=== PATIENT | male | born 1975 | race Caucasian/White ===

== ENCOUNTER 2016-09-17 01:37 | Emergency (ER) | payer OTHER ==
[2016-09-17] MEDS ORDERED: Ondansetron INJ* 2 MG/ML VIAL IV ONE (02:14)
[2016-09-17] MEDS ORDERED: Morphine INJ* 4 MG/ML 1 ML SYRINGE IV ONE (02:14)
[2016-09-17] MEDS ORDERED: NS 0.9% 1000 ML* 1,000 ML IV ONE (02:14)
[2016-09-17 03:09] LABS: Hematocrit 46 % (42-52); Hemoglobin 15.2 g/dl (14.0-18.0); Mean Corpuscular HGB Conc 33 g/dl (31-36); Mean Corpuscular Hemoglobin 28 pg (27-31); Mean Corpuscular Volume 84 fL (80-94); Mean Platelet Volume 8 um3 (7.4-10.4); Red Blood Count 5.49 10^6/ul (4.0-5.4); Red Cell Distribution Width 13 % (10.5-15); White Blood Count 14.8 10^3/ul (3.5-10.8)
[2016-09-17 03:25] LABS: Albumin 4.3 g/dL (3.2-5.2); BUN/Creatinine Ratio 21.4 (8-20); Calcium 9.7 mg/dL (8.6-10.3); EGFR African American 108.4 (>60); EGFR Non-African American 84.3 (>60); Globulin 3.4 g/dL (2-4); Potassium 3.6 mmol/L (3.5-5.0); Total Bilirubin 0.4 mg/dL (0.2-1.0); Total Protein 7.7 g/dL (6.4-8.9)
[2016-09-17] MEDS ORDERED: NS 0.9% 1000 ML* 2,000 ML IV ONE (03:36)
[2016-09-17 03:37] LABS: Urine Bacteria Absent (Absent); Urine Bilirubin Negative (Negative); Urine Glucose Negative (Negative); Urine Nitrite Negative (Negative)
[2016-09-17] MEDS ORDERED: Iohexol 300* (CONTRAST) 10 ML SDV IV ONE (03:46)
[2016-09-17] MEDS ORDERED: Metoclopramide IV* 5 MG/ML 2 ML VIAL ONE (03:54)
[2016-09-17] MEDS ORDERED: Metoclopramide IV* 5 MG/ML 2 ML VIAL IV ONE (03:54)
[2016-09-17] MEDS ORDERED: Tamsulosin CAP* 0.4 MG PO ONE (05:23)
[2016-09-17 05:24] VITALS: BP 132/92
--- NOTE | 2016-09-17 08:38 | RAD ---
CLINICAL HISTORY: Left lower quadrant pain COMPARISON: None TECHNIQUE: Contrast enhanced CT examination of the abdomen and pelvis from the lung bases through the initial tuberosities. The patient received 117 mL Omnipaque 300 intravenously prior to imaging.The patient received oral contrast as well prior to imaging. FINDINGS: VISUALIZED LUNG BASES: The visualized lung bases are grossly clear. There is no pleural effusion. ABDOMEN AND PELVIS: The liver, spleen, pancreas and adrenal glands are grossly normal in appearance. The gallbladder is normal. The right kidney is normal in appearance without focal mass, calcification or signs of hydronephrosis. There is mild hydronephrosis of the left kidney. At the proximal right ureter (axial image 87 and coronal image 53) there is a 4 mm calcification. No more calcifications are visualized in the more distal ureter or in the urinary bladder. On the delayed phase images there is delayed excretion of contrast in the mildly dilated left renal pelvis. The oral contrast has progressed as only as far as the proximal small bowel. The small and large bowel are not distended. The patient's normal appendix is identified in the right lower quadrant (axial image 112). There is no gross retroperitoneal or mesenteric lymphadenopathy. Coarse calcification is incidentally noted in the prostate gland. The abdominal aorta and iliac arteries are normal in course and diameter. Incidentally noted is what appears to be an accessory vascular structure (image 110 of 201) contiguous with the left renal lower pole. This either represents an accessory renal vein or an accessory renal artery branching from either the left common iliac artery or a lumbar artery. Degenerative changes include multilevel loss of intervertebral disc height involving the lower thoracic and lumbar spine.There are no sinister bone lesions. IMPRESSION: 1. There is a 4 mm calcification in the proximal left ureter with a mild degree of ipsilateral hydronephrosis and evidence of relative delayed excretion on the delayed phase images. 2. Additional chronic and degenerative changes as described in the body of the report.
--- NOTE | 2016-09-17 21:22 | ED ---
Sean Griffin Alok, scribed for Lalito Pro on 09/17/16 at 0252 . Abdominal Pain/Male - HPI Summary HPI Summary: 41 y/o male presents to the ED for LLQ abd pain since 2400. Pt states his pain has been constant and continually worsening. Pt adds nausea. Pt denies diarrhea or hemotochezia. Pt notes achiness but is unsure of fever. Pt denies past abd surgery. Pt is allergic to amoxicillin. - History of Current Complaint Chief Complaint: EDAbdPain Stated Complaint: LEFT FLANK PAIN Time Seen by Provider: 09/17/16 02:06 Hx Obtained From: Patient Onset/Duration: Gradual Onset, Still Present, Worse Since - continually worsening Timing: Constant Severity Initially: Moderate Severity Currently: Moderate Pain Intensity: 7 Pain Scale Used: 0-10 Numeric Location: Discrete At: LLQ Associated Signs And Symptoms: Positive: Nausea, Other - achiness. Negative: Blood in Stool, Diarrhea - Allergies/Home Medications Allergies/Adverse Reactions: Allergies Allergy/AdvReac Type Severity Reaction Status Date / Time Amoxicillin Allergy Rash Verified 09/17/16 01:43 PMH/Surg Hx/FS Hx/Imm Hx Infectious Disease History: No Infectious Disease History: Denies: Traveled Outside the [place] in Last 30 Days - Family History Known Family History: Negative: Hypertension - Social History Occupation: Employed Full-time Lives: With Family Alcohol Use: Occasionally Substance Use Type: Reports: None Smoking Status (MU): Never Smoked Tobacco Review of Systems Negative: Fever Positive: Abdominal Pain, Nausea. Negative: Diarrhea, Other - hematochezia All Other Systems Reviewed And Are Negative: Yes Physical Exam Triage Information Reviewed: Yes Vital Signs On Initial Exam: Initial Vitals Temp Pulse Resp BP Pulse Ox 96.8 F 53 18 121/73 100 09/17/16 01:43 09/17/16 01:43 09/17/16 01:43 09/17/16 01:43 09/17/16 01:43 Vital Signs Reviewed: Yes Appearance: Positive: Well-Appearing, No Pain Distress Skin: Positive: Warm, Skin Color Reflects Adequate Perfusion, Dry Head/Face: Positive: Normal Head/Face Inspection Eyes: Positive: EOMI, FANTA ENT: Positive: Normal ENT inspection Neck: Positive: Supple, Nontender Respiratory/Lung Sounds: Positive: Clear to Auscultation, Breath Sounds Present Cardiovascular: Positive: RRR, Pulses are Symmetrical in both Upper and Lower Extremities Abdomen Description: Positive: Soft, Other: - LLQ tenderness Bowel Sounds: Positive: Present Musculoskeletal: Positive: Normal, Strength/ROM Intact Neurological: Positive: Normal, Sensory/Motor Intact, Alert, Oriented to Person Place, Time - [place] Coma Scale Coma Scale Total: 15 Diagnostics - Vital Signs Vital Signs Temp Pulse Resp BP Pulse Ox 09/17/16 01:43 96.8 F 53 18 121/73 100 - Laboratory Result Diagrams: 09/17/16 02:45 09/17/16 02:45 Lab Statement: Any lab studies that have been ordered have been reviewed, and results considered in the medical decision making process. - CT Abd/Pel CT CT Interpretation: Positive (See Comments) - IMPRESSION: OBSTRUCTING CALCULUS IN THE PROXIMAL LEFT URETER. CT Interpretation Completed By: Radiologist Re-Evaluation - Re-Evaluation First Eval Re-Evaluation Time: 05:30 Change: Improved Comment: Pt feel better after morphine. Pt has no pain. Abdominal Pain Fem Course/Dx - Course Course Of Treatment: Pt arrived with left flank pain. Lab and CT shows renal calculi. Pt given morphine and feels better with no pain. Will discharge with pain meds and flomax and to FU with Urology. - Diagnoses Provider Diagnoses: Renal calculi Discharge - Discharge Plan Condition: Stable Disposition: HOME Prescriptions: Tamsulosin HCl [Flomax] 0.4 mg PO ONCE #15 cap MDD 1 oxyCODONE/Acetamin 5/325 MG* [Percocet 5/325 TAB*] 1 tab PO Q8H PRN #20 tab MDD 4 PRN Reason: Pain Referrals: Matt Johansen MD [Primary Care Provider] - Additional Instructions: Please follow up with Urology [phone] The documentation as recorded by the Sean luna Alok accurately reflects the service I personally performed and the decisions made by , Lalito Pro.
== END 2016-09-17 05:44 | disposition home or self-care (01) ==
LOC: ED 01:37
DX: N13.2 Hydronephrosis with renal and ureteral calculous obstruction (principal); R11.0 Nausea; Z88.1 Allergy status to other antibiotic agents
CPT/HCPCS: 36415; 74177; 80053; 81003; 81015; 83605; 83690; 85025; 85610; 85730; 96361; 96374; 96375; 99283; J2270; J2405; Q9967

== ENCOUNTER 2017-08-06 08:36 | Emergency (ER) | payer OTHER ==
[2017-08-06] MEDS ORDERED: Acetaminophen TAB* 325 MG PO ONE (09:50)
[2017-08-06] MEDS ORDERED: NS 0.9% 1000 ML* 1,000 ML IV ONE (09:51)
[2017-08-06] MEDS ORDERED: Clindamycin 600 MG IVPREMIX(* 600 MG/50 ML SDV IV ONE (09:55)
--- NOTE | 2017-08-06 09:55 | ED ---
Tesfaye Griffin Julia, scribed for Yasmin Pollack MD on 08/06/17 at 0949 . HPI Febrile Illness - HPI Summary HPI Summary: This patient is a 41 year old M presenting to [facility] with a chief complaint of fever, measured over 100F, beginning last night into this morning. This morning fever was "high" and the thermometer would not read it. Patient states he had a shaving infection to his right neck on 08/02/17 that was drained while in [place] on 08/04/17. Pt flew home from [place] last night. Patient reports nausea and decreased appetite. Patient denies vomiting. Patient states pain is not too bad. Patient has had five doses of Cipro. Pt took one dose of Tylenol and two of Advil prior to arrival. Patient denies health issues that may make him immune compromised, including DM, cancer, and MRSA. Pt is is otherwise healthy. 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 Pt states wound size markedly improved Pt's medications reviewed this visit - History of Current Complaint Chief Complaint: EDFever Time Seen by Provider: 08/06/17 09:29 Hx Obtained From: Patient, Family/Cannon Pinion Adjuster Onset/Duration: Started Days Ago, Worse Since - last night Timing: Constant Temperature: 100 F Initial Severity: Mild Current Severity: Moderate Pain Intensity: 2 Pain Scale Used: 0-10 Numeric Aggravating Factors: Other: - infection Associated Signs and Symptoms: Nausea - and decreased appetite - Allergy/Home Medications Allergies/Adverse Reactions: Allergies Allergy/AdvReac Type Severity Reaction Status Date / Time amoxicillin Allergy Rash Verified 08/06/17 08:41 PMH/Surg Hx/FS Hx/Imm Hx Previously Healthy: Yes Endocrine/Hematology History: Denies: Hx Diabetes Cardiovascular History: Denies: Hx Hypertension History: Denies: Hx Renal Disease - Cancer History Hx Chemotherapy: No Hx Radiation Therapy: No - Surgical History Surgery Procedure, Year, and Place: denies Infectious Disease History: No Infectious Disease History: Reports: Traveled Outside the [place] in Last 30 Days - [facility] Denies: Hx of Known/Suspected MRSA - Family History Known Family History: Positive: Diabetes - father Negative: Hypertension - Social History Occupation: Employed Full-time Lives: With Family Alcohol Use: Occasionally Substance Use Type: Reports: None Smoking Status (MU): Never Smoked Tobacco Review of Systems Positive: Fever Positive: Nausea - and decreased appetite. Negative: Vomiting Positive: Other - skin infection to right neck All Other Systems Reviewed And Are Negative: Yes Physical Exam Triage Information Reviewed: Yes Vital Signs On Initial Exam: Initial Vitals Temp Pulse Resp BP Pulse Ox 100.5 F 109 16 150/85 94 08/06/17 08:42 08/06/17 08:42 08/06/17 08:42 08/06/17 08:42 08/06/17 08:42 Vital Signs Reviewed: Yes Appearance: Positive: Well-Appearing, No Pain Distress - tired appearing, Well- Nourished Skin: Positive: Warm, Skin Color Reflects Adequate Perfusion, Dry, Other - Pt with focal area of erythema, edema and drainage from wound just superior to left mandible- c/w abscess no odor Eyes: Positive: Normal, EOMI, FANTA ENT: Positive: Normal ENT inspection, Hearing grossly normal, Pharynx normal, TMs normal, Other - facial abscess - no intra-oral edema no pain or limitatin at TMJ or along jawline Neck: Positive: Supple, Nontender, No Lymphadenopathy Respiratory/Lung Sounds: Positive: Clear to Auscultation, Breath Sounds Present , Decreased Breath Sounds Cardiovascular: Positive: Normal - borderline tachy, RRR, Pulses are Symmetrical in both Upper and Lower Extremities, Bradycardia. Negative: Murmur Abdomen Description: Positive: Nontender, No Organomegaly, Soft Bowel Sounds: Positive: Present Musculoskeletal: Positive: Normal, Strength/ROM Intact Neurological: Positive: Normal, Sensory/Motor Intact, Alert, Oriented to Person Place, Time Psychiatric: Positive: Normal AVPU Assessment: Alert - [place] Coma Scale Best Eye Response: 4 - Spontaneous Best Motor Response: 6 - Obeys Commands Best Verbal Response: 5 - Oriented Coma Scale Total: 15 Procedures - Procedure Summary Procedure Summary: + verbal consent - d/w with pt cosmetic concerns related to abscess on face - pt and state understanding and desire to proceed time out complete Under sterile conditions, infiltrated 2% lidocaine without epi to wound removed scab from previious I+d site Did NOT extend incision. Used mosquito to open small loculation irrigated with 250 ml and removed copious, purulent discharge no packing place culture taken Pt tolerated well - Incision and Drainage Site: left distal cheek - just above mandible Anesthesia: Local Instrument(s): Other - forcep, mosquito Packing: Gauze Diagnostics - Vital Signs Vital Signs Temp Pulse Resp BP Pulse Ox 08/06/17 08:42 100.5 F 109 16 150/85 94 - Laboratory Result Diagrams: 08/06/17 09:50 08/06/17 11:30 Lab Statement: Any lab studies that have been ordered have been reviewed, and results considered in the medical decision making process. Re-Evaluation - Re-Evaluation 1 Re-Evaluation Time: 11:38 Comment: Lab results will be repeated because of low sodium - Pt given 1 liter NS. Will check - ifimproved, will d/c with pcp vs surgery f/u. d/w pt and at length regarding wound care. abx. antipyretic. hydrate. return precautions Second Eval Change: Improved - Pt reports feeling better Pt sodium improved 126 Surgery PA in dept - eval pt - will see in f.u on Wednesday - will make appt Will recheck sodium encouraged gatorade, not water return precautions pro-biotics pt comfortable and in agreement with plan Course/Dx - Course Assessment/Plan: Pt with persistent left facial abscess - s/p I+D 2 days ago. Pt continues with edema and drainage, but improved from prior to drainage. Pt is on Cipro - 5 doses. not immunocompromised. No concern for tracking of abscess based on exam at this time. Will further I+D wound. IVF. change to Clinda - d/w pt regarding diarrhea and risks for c diff - pt will take pro- biotics. Will give additional APAP. Pt comfortable and in agreement with plan - Diagnoses Provider Diagnoses: Facial abscess, Hyponatremia Discharge - Sign-Out/Discharge Documenting (check all that apply): Discharge - Discharge Plan Condition: Stable Disposition: HOME Prescriptions: Clindamycin HCl 300 mg PO TID #30 capsule Patient Education Materials: Hyponatremia (ED), Abscess (ED) Referrals: Matt Johansen MD [Primary Care Provider] - Charles Zhao MD [Medical Doctor] - (11:45am on Wednesday08/09/2017) Additional Instructions: - Stop taking Cipro, start taking Clindamycin as prescribed - This may cause diarrhea - it is recommended you take pro-biotic daily while taking this antibiotic. You may also consider eating yogurt daily while on this medication - alternate ibuprofen (advil, Motrin) and tylenol every 3 hours for pain or fever - Stay hydrated - drink plenty of non-alcoholic, non-caffinated beverages - Change bandage 2 times a day - you wound should be rechecked in 2-3 days. You may follow-up with the community health specialist as scheduled today. Alternatively, you may follow-up with your primary doctor or return here. You have an appointment with the surgical associates at 11:45am on Wednesday08/09/2017 - It is recommended you do not drink straight water - it is recommended you drink gatorade or other electrolyte rich beverages If continue with uncontrolled fevers, develop vomiting or any other concerns you should return to the emergency department - Billing Disposition and Condition Condition: STABLE Disposition: HOME The documentation as recorded by the Tesfaye luna Julia accurately reflects the service I personally performed and the decisions made by me, Yasmin Pollack MD.
[2017-08-06] MEDS ORDERED: Lidocaine 2% PF * 5 ML VIAL IV ONE (10:01)
[2017-08-06 10:17] LABS: Hematocrit 39 % (42-52); Hemoglobin 13.4 g/dl (14.0-18.0); Mean Corpuscular HGB Conc 34 g/dl (31-36); Mean Corpuscular Hemoglobin 28 pg (27-31); Mean Corpuscular Volume 83 fL (80-94); Mean Platelet Volume 7.1 um3 (7.4-10.4); Platelet Count 233 10^3/ul (150-450); Red Blood Count 4.72 10^6/ul (4.0-5.4); Red Cell Distribution Width 13 % (10.5-15); White Blood Count 18.8 10^3/ul (3.5-10.8)
[2017-08-06 10:39] LABS: EGFR Non-African American 102.1 (>60)
[2017-08-06 11:10] LABS: ABS Basophils 0 10^3/ul (0-0.2); ABS Eosinophils 0 10^3/ul (0-0.6); ABS Monocytes 1.6 10^3/ul (0-0.8); ABS Neutrophils 16.2 10^3/ul (1.5-7.7); ABS Nucleated RBC 0 10^3/ul; Eosinophil % 0 % (0-6); Lymphocyte % 5.1 % (25-47); Nucleated Red Blood Cells % 0
[2017-08-06] MEDS ORDERED: NS 0.9% 1000 ML* 2,000 ML IV ONE (11:41)
[2017-08-06 12:47] LABS: EGFR Non-African American 114.8 (>60)
[2017-08-06 13:27] VITALS: BP 146/80
--- NOTE | 2017-08-07 10:09 | ED ---
Progress - Progress Note Progress Note: Patient's wound culture reveals MRSA and staph aureus. Additionally he had aerobic and anaerobic blood cultures which also reveal MRSA and staph aureus. Patient had a fever and was tachycardic with an elevated white blood cell count upon evaluation yesterday. He had been taking cipro for a few days prior to coming in for eval and it appears wound was not improving despite this medication adn attempts at drainage as well. Wound was I&D'd yesterday w/o packing. Spoke with him today and he reports he feels a little better but is still queasy, weak and not feeling great in general. Advised to return to the emergency department to be admitted for IV antibiotics. Patient agrees with plan and states he will come in today. Alerted front office coordinator staff including registration and triage nurse. Re-Evaluation - Re-Evaluation Second Eval Change: Improved - Pt reports feeling better Pt sodium improved 126 Surgery PA in dept - eval pt - will see in f.u on Wednesday - will make appt Will recheck sodium encouraged gatorade, not water return precautions pro-biotics pt comfortable and in agreement with plan 1 Re-Evaluation Time: 11:38 Comment: Lab results will be repeated because of low sodium - Pt given 1 liter NS. Will check - ifimproved, will d/c with pcp vs surgery f/u. d/w pt and at length regarding wound care. abx. antipyretic. hydrate. return precautions Course/Dx - Diagnoses Provider Diagnoses: Facial abscess, Hyponatremia Discharge - Sign-Out/Discharge Documenting (check all that apply): Post-Discharge Follow Up - Discharge Plan Condition: Stable Disposition: HOME Prescriptions: Clindamycin HCl 300 mg PO TID #30 capsule Patient Education Materials: Hyponatremia (ED), Abscess (ED) Referrals: Matt Johansen MD [Primary Care Provider] - Charles Zhao MD [Medical Doctor] - (11:45am on Wednesday08/09/2017) Additional Instructions: - Stop taking Cipro, start taking Clindamycin as prescribed - This may cause diarrhea - it is recommended you take pro-biotic daily while taking this antibiotic. You may also consider eating yogurt daily while on this medication - alternate ibuprofen (advil, Motrin) and tylenol every 3 hours for pain or fever - Stay hydrated - drink plenty of non-alcoholic, non-caffinated beverages - Change bandage 2 times a day - you wound should be rechecked in 2-3 days. You may follow-up with the oral surgery assistant as scheduled today. Alternatively, you may follow-up with your primary doctor or return here. You have an appointment with the surgical associates at 11:45am on Wednesday08/09/2017 - It is recommended you do not drink straight water - it is recommended you drink gatorade or other electrolyte rich beverages If continue with uncontrolled fevers, develop vomiting or any other concerns you should return to the emergency department - Billing Disposition and Condition Condition: STABLE Disposition: HOME
--- NOTE | 2017-08-08 09:21 | PN ---
Progress Note - Progress Note Date of Service: 08/06/17 Note: Patient is currently admitted for MRSA-positive staph aureus positive cultures He is receiving the appropriate treatment via IV antibiotics
--- NOTE | 2017-08-09 08:52 | ED ---
Progress - Progress Note Progress Note: Patient's wound culture reveals MRSA and staph aureus. Additionally he had aerobic and anaerobic blood cultures which also reveal MRSA and staph aureus. Patient had a fever and was tachycardic with an elevated white blood cell count upon evaluation yesterday. He had been taking cipro for a few days prior to coming in for eval and it appears wound was not improving despite this medication adn attempts at drainage as well. Wound was I&D'd yesterday w/o packing. Spoke with him today and he reports he feels a little better but is still queasy, weak and not feeling great in general. Advised to return to the emergency department to be admitted for IV antibiotics. Patient agrees with plan and states he will come in today. Alerted front office agent staff including registration and triage nurse. UPDATE: Pt returned to ED on 08/07/2017 and has been admitted for MRSA/staph bacteremia. He has been on IV vancomycin since return to ED on 08/07/2017. Ada Wilkins hospitalist QUALITY ASSURANCE SUPERVISOR aware. Re-Evaluation - Re-Evaluation Second Eval Change: Improved - Pt reports feeling better Pt sodium improved 126 Surgery PA in dept - eval pt - will see in f.u on Wednesday - will make appt Will recheck sodium encouraged gatorade, not water return precautions pro-biotics pt comfortable and in agreement with plan 1 Re-Evaluation Time: 11:38 Comment: Lab results will be repeated because of low sodium - Pt given 1 liter NS. Will check - ifimproved, will d/c with pcp vs surgery f/u. d/w pt and at length regarding wound care. abx. antipyretic. hydrate. return precautions Course/Dx - Diagnoses Provider Diagnoses: Facial abscess, Hyponatremia Discharge - Sign-Out/Discharge Documenting (check all that apply): Post-Discharge Follow Up - Discharge Plan Condition: Stable Disposition: HOME Prescriptions: Clindamycin HCl 300 mg PO TID #30 capsule Patient Education Materials: Hyponatremia (ED), Abscess (ED) Referrals: Matt Johansen MD [Primary Care Provider] - Charles Zhao MD [Medical Doctor] - (11:45am on Wednesday08/09/2017) Additional Instructions: - Stop taking Cipro, start taking Clindamycin as prescribed - This may cause diarrhea - it is recommended you take pro-biotic daily while taking this antibiotic. You may also consider eating yogurt daily while on this medication - alternate ibuprofen (advil, Motrin) and tylenol every 3 hours for pain or fever - Stay hydrated - drink plenty of non-alcoholic, non-caffinated beverages - Change bandage 2 times a day - you wound should be rechecked in 2-3 days. You may follow-up with the health science specialist as scheduled today. Alternatively, you may follow-up with your primary doctor or return here. You have an appointment with the surgical associates at 11:45am on Wednesday08/09/2017 - It is recommended you do not drink straight water - it is recommended you drink gatorade or other electrolyte rich beverages If continue with uncontrolled fevers, develop vomiting or any other concerns you should return to the emergency department - Billing Disposition and Condition Condition: STABLE Disposition: HOME
== END 2017-08-06 13:26 | disposition home or self-care (01) ==
LOC: ED 08:36
DX: L02.01 Cutaneous abscess of face (principal); B95.62 Methicillin resistant Staphylococcus aureus infection as the cause of diseases classified elsewhere; Z16.11 Resistance to penicillins; Z16.29 Resistance to other single specified antibiotic; E87.1 Hypo-osmolality and hyponatremia; R50.9 Fever, unspecified; R11.0 Nausea; Z88.1 Allergy status to other antibiotic agents
CPT/HCPCS: 10060; 36415; 80048; 85025; 87040; 87070; 87077; 87150; 87186; 87205; 87640; 87641; 99282; A9270-GY

== ENCOUNTER 2017-08-07 10:38 | Inpatient (IN) | payer OTHER ==
[2017-08-07] MEDS ORDERED: Vancomycin(*) 1,000 MG VIAL IVPB SCH (11:00)
--- NOTE | 2017-08-07 11:08 | ED ---
Sepsis HPI - HPI Summary HPI Summary: Pt here w/ + wound cx and blood cx's for MRSA and staph aureus. He reports this initially started as an infected ingrown hair on the left side of his neck while he was traveling to [place] on Wednesday. It seemed to get worse while he was there so he went to see a physician who he reports drained the abscess and placed him on ciprofloxacin. He took this up until yesterday when he return to the emergency department here and saw Dr. Pollack. His wound was re-drained and note indicates purulent drainage was expressed. He was switched from Cipro to clindamycin which she's been taking. He's also been taking ibuprofen and acetaminophen to reduce his fever which has been well-controlled since. He does report however he still not feeling well in general - run down, short of breath with exertion, no appetite but has been consuming fluids. He also admits to mild headache. Chest pain w/ cough only (cough is dry and infrequent) . Mild TUCKER. No difficulty breathing or swallowing. - History of Current Complaint Chief Complaint: EDRashSkinAbscess Time Seen by Provider: 08/07/17 10:40 Stated Complaint: NEEDS IV ANTIBIOTICS Hx Obtained From: Patient Pain Intensity: 0 - Allergy/Home Medications Allergies/Adverse Reactions: Allergies Allergy/AdvReac Type Severity Reaction Status Date / Time amoxicillin Allergy Rash Verified 08/06/17 08:41 PMH/Surg Hx/FS Hx/Imm Hx Previously Healthy: No - recalcitrant left neck wound Endocrine/Hematology History: Denies: Hx Diabetes Cardiovascular History: Denies: Hx Hypertension History: Denies: Hx Renal Disease - Cancer History Hx Chemotherapy: No Hx Radiation Therapy: No - Surgical History Surgery Procedure, Year, and Place: denies Infectious Disease History: Yes Infectious Disease History: Reports: Hx of Known/Suspected MRSA, Traveled Outside the [place] in Last 30 Days - [place] - Family History Known Family History: Positive: Diabetes - father Negative: Hypertension - Social History Occupation: Employed Full-time Lives: With Family Alcohol Use: Occasionally Hx Substance Use: No Substance Use Type: Reports: None Hx Tobacco Use: No Smoking Status (MU): Never Smoked Tobacco Review of Systems Positive: Chills, Fatigue Eyes: Negative ENT: Negative Positive: Chest Pain - w/ cough only Positive: Shortness Of Breath - w/ exertion only . Negative: Cough Gastrointestinal: Other - dec appetite Negative: Abdominal Pain, Vomiting, Diarrhea, Nausea Positive: no symptoms reported Musculoskeletal: Negative Skin: Other - Left neck with MRSA/staph aureus wound Positive: Headache - mild All Other Systems Reviewed And Are Negative: Yes Physical Exam Triage Information Reviewed: Yes Vital Signs On Initial Exam: Initial Vitals Pulse Ox 94 08/07/17 10:40 Vital Signs Reviewed: Yes Appearance: Positive: No Pain Distress, Well-Nourished, Ill-Appearing - appears fatigued Skin: Positive: Warm, Skin Color Reflects Adequate Perfusion, Other - Lt side of neck: wound dressing clean and dry - removed and quarter sized area of swelling w/ central opening and purulent drainage observed - expressed blood streaked purulent drainage - pt tolerated well, redressed with gauze/tegaderm Head/Face: Positive: Normal Head/Face Inspection Eyes: Positive: Normal, EOMI, Conjunctiva Clear. Negative: Conjunctiva Inflammed, Discharge ENT: Positive: Normal ENT inspection, Hearing grossly normal, Pharynx normal - oral mucosa somewhat dry, pallor Respiratory/Lung Sounds: Positive: Clear to Auscultation, Breath Sounds Present. Negative: Rales, Rhonchi, Stridor, Tracheal Deviation, Wheezes, Unable to speak in full sentences Cardiovascular: Positive: Normal, RRR, S1, S2. Negative: Murmur, Rub Abdomen Description: Positive: Nontender, No Organomegaly, Soft Bowel Sounds: Positive: Present Musculoskeletal: Positive: Normal, Strength/ROM Intact Neurological: Positive: Normal, Sensory/Motor Intact, Alert, Oriented to Person Place, Time, CN Intact II-III Psychiatric: Positive: Normal Diagnostics - Vital Signs Vital Signs Temp Pulse Resp BP Pulse Ox 08/07/17 10:41 98.4 F 93 16 127/81 94 08/07/17 10:40 94 - Laboratory Result Diagrams: 08/07/17 11:23 08/07/17 11:23 Lab Statement: Any lab studies that have been ordered have been reviewed, and results considered in the medical decision making process. Course/Dx - Course Course Of Treatment: Pt returned to ED per request - blood cx's + MRSA and staph aureus. He has a wound on Lt side of neck with is positive for the same. Was taking cipro s/p I&D while in [place] earlier this week - no improvement so came here yesterday. Wound was further opened and drainaged - switched to clindamycin (received 1 dose IV here and has been taking PO at home). Still feels weak and with reduced appetite in general. Spesis protocol initiated upon arrival. Will be admitted for IV anbx (started on vancomycin in ED). Upon review of labs, WBC has improved however he continues to have elevated neutrophils. CRP is in 300's. Appears mildly dehydrated - normal Lactic acid. CXR w/o acute pulm findings. Afebrile and vitals stable however has been alternating ibuprofen/acetaminophen around the clock. Stable at time of transition of care. - Differential Dx/Clinical Impression Provider Diagnosis: MRSA bacteremia, Staphylococcus aureus bacteremia, Open neck wound Discharge - Sign-Out/Discharge Documenting (check all that apply): Discharge - Discharge Plan Condition: Stable Disposition: ADMITTED TO [facility] - Billing Disposition and Condition Condition: STABLE Disposition: [facility] [place]
[2017-08-07] MEDS ORDERED: Vancomycin(*) 1,250 MG in NS 0.9% 250 ML* 250 ML IVPB ONE (11:09)
[2017-08-07] MEDS ORDERED: NS 0.9% 1000 ML* 1,000 ML IV ONE (11:09)
[2017-08-07] MEDS ORDERED: NS 0.9% 1000 ML*IV.FLUID IV ONE (11:12)
[2017-08-07] MEDS ORDERED: NS 0.9% 250 ML* 250 ML ONE (11:14)
[2017-08-07 11:32] LABS: ABS Basophils 0 10^3/ul (0-0.2); ABS Eosinophils 0 10^3/ul (0-0.6); ABS Lymphocytes 0.2 10^3/ul (1.0-4.8); ABS Monocytes 0.5 10^3/ul (0-0.8); ABS Nucleated RBC 0 10^3/ul; Eosinophil % 0.2 % (0-6); Hematocrit 40 % (42-52); Hemoglobin 13.9 g/dl (14.0-18.0); Lymphocyte % 2.8 % (25-47); Mean Corpuscular HGB Conc 34 g/dl (31-36); Mean Corpuscular Hemoglobin 29 pg (27-31); Mean Corpuscular Volume 83 fL (80-94); Nucleated Red Blood Cells % 0; Platelet Count 181 10^3/ul (150-450); Red Blood Count 4.87 10^6/ul (4.0-5.4); Red Cell Distribution Width 13 % (10.5-15); White Blood Count 8.8 10^3/ul (3.5-10.8)
[2017-08-07 11:49] LABS: EGFR Non-African American 106.5 (>60)
[2017-08-07 11:51] LABS: INR 1.38 (0.77-1.02)
[2017-08-07] MEDS ORDERED: Vancomycin(*) 1,250 MG IV x ONCE IVPB ONE ×2 (12:00)
--- NOTE | 2017-08-07 12:02 | RAD ---
HISTORY: Sepsis COMPARISONS: None VIEWS: 1: frontal portable view of the chest at 11:33 AM FINDINGS: LINES AND TUBES: None. CARDIOMEDIASTINAL SILHOUETTE: The cardiomediastinal silhouette is normal for portable technique. PLEURA: The costophrenic angles are sharp. No pleural abnormalities are noted. LUNG PARENCHYMA: The lungs are clear. ABDOMEN: The upper abdomen is clear. There is no subphrenic gas. BONES AND SOFT TISSUES: No bone or soft tissue abnormalities are noted. IMPRESSION: NO ACTIVE CARDIOPULMONARY DISEASE.
[2017-08-07] MEDS ORDERED: Ondansetron INJ* 2 MG/ML VIAL IV PRN (12:08)
[2017-08-07] MEDS ORDERED: NS 0.9% 1000 ML* 1,000 ML IV SCH (12:15)
[2017-08-07] MEDS ORDERED: Vancomycin per Pharmacy* NOTE FOLLOW UP SCH (13:00)
[2017-08-07] MEDS: Heparin VIAL(*) 5000 UNITS/ML VIAL (FIVE THOUSAND) SUBCUT SCH ×2 (13:32→20:14)
[2017-08-07] MEDS: Acetaminophen TAB* 325 MG PO PRN ×2 (14:11→20:19)
[2017-08-07] MEDS ORDERED: Ibuprofen TAB* 600 MG PO PRN (14:46)
--- NOTE | 2017-08-07 18:28 | HP ---
CC: Dr. Johansen.* HOSPITAL MEDICINE HISTORY AND PHYSICAL: DATE OF ADMISSION: 08/07/17. PRIMARY CARE PHYSICIAN: Dr. Johansen. ATTENDING PHYSICIAN: Dr. Michaela Andrea * (dictation provided by Ada Wilkins NP ). CHIEF COMPLAINT: Fever and left neck abscess. HISTORY OF PRESENT ILLNESS: Mr. Victor is a 41-year-old male with no significant past medical history who presents to the hospital today in concern for fever, left neck abscesses and positive blood cultures. Mr. Victor states that he first noticed an infection after shaving to his left mid neck on 08/02/17. At that point, he was in [place]. He followed up with a doctor there on 08/04/17 and the abscess was lanced, with significant purulent drainage. The patient was started on ciprofloxacin which he continued for and 08/05/17. On 08/05/17, he flew back to [place]. On 08/06/17, he had fever, was feeling generalized malaise and therefore came to the emergency room at [facility] for evaluation. At that point, the area was again I and D'd. He had a white blood cell count of 18.8. He was hyponatremic with a sodium of 125. His BUN and creatinine were normal. His potassium was 3.3. His lactic acid was 2.2. His fever was about 100.5. The patient after the I and D was discharged home on clindamycin. Blood cultures were obtained at that time, and patient was called today with notification that the blood cultures are positive for MRSA. Mr. Victor states that he has had symptoms of high fever with generalized malaise. He has a very mild nausea but no vomiting. He denies headache. He denies any significant pain associated with an abscess and certainly no difficulty with breathing or swallowing. Today in the emergency room, his labs showed that his white blood cell count is resolved, it is now 8.8. His sodium is now 130. CRP was 318.14. He is afebrile but he has taken Tylenol and acetaminophen at home. He is not tachycardic. His blood pressure is 110/75. His lactic acid is normal at 0.8. PAST MEDICAL HISTORY: None. MEDICATIONS: Clindamycin as prescribed in the ER on 08/06/17 only. ALLERGIES: To AMOXICILLIN. FAMILY HISTORY: The patient reports that his father is alive and has diabetes. His mother is from gallbladder cancer. SOCIAL HISTORY: The patient denies tobacco or drug use. He drinks alcohol only very occasionally. 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 He is and has 2 children. He states his is his healthcare proxy. REVIEW OF SYSTEMS: A 14-point review of systems was completed with Mr. Victor and all those not mentioned above were negative. PHYSICAL EXAMINATION GENERAL: Mr. Victor is sitting in the bed. He is in no acute distress. VITAL SIGNS: Temperature 98.4, heart rate 90, respiratory rate 18, O2 saturation 94% on room air, blood pressure 110/75. HEENT: Extraocular movements are intact. LUNGS: Clear to auscultation bilaterally with no accessory muscle use and good aeration. HEART: S1, S2. No murmur, rub, or gallop and regular. ABDOMEN: Soft and nontender with bowel sounds positive x4. EXTREMITIES: No cyanosis or edema. NEURO: He is alert. He is oriented x3. He moves all extremities equally. There is no facial asymmetry. No focal weakness. SKIN: The patient has an indurated pus filled abscess on the left side of his neck, this pus was expressed by the ED physician enrichment assistant with good success and clearing of that, he has a very small opening there less than half a centimeter in diameter. LABORATORY DATA/DIAGNOSTIC STUDIES: Sodium 130, potassium 3.6, chloride 99, serum bicarbonate 25, BUN 13, creatinine 0.80. Lactic acid 0.8. Total bilirubin 2.0. CRP is 318.14. INR is 1.38. WBC 8.8, hemoglobin 13.9, hematocrit 40, platelet count 181. Blood cultures from yesterday as well as wound culture is positive for MRSA. The patient has a chest x-ray which showed no active pulmonary disease. ASSESSMENT AND PLAN: Mr. Victor is a 41-year-old male with no significant past medical history who originally developed an abscess on his left neck on , which was opened and drained on 08/04/17, at which time ciprofloxacin was started. By 08/06/17 he was feeling febrile and was seen in our emergency room for additional drainage and switched to clindamycin. Blood cultures drawn at that time now positive for methicillin-resistant Staphylococcus aureus. Plan for admission to the hospital for the followin. Methicillin-resistant Staphylococcus aureus bacteremia: At this time the patient does not meet criteria for sepsis. The patient's leukocytosis is normalized. His vital signs are stable. His lactic acid is normal. Repeat blood cultures have been drawn. I am going to order a second set of blood cultures to be drawn tomorrow after 24 hours on vancomycin. The patient will have a transthoracic echocardiogram tomorrow as a transesophageal is not available for an initial assessment for vegetation, but he will then go on for a transesophageal echocardiogram on Wednesday. The patient will be seen in consultation by Dr. Jayden Castaneda from Infectious Diseases, until then the patient will continue on vancomycin intravenously, dosing per pharmacy . The patient will have Tylenol for fever. He will continue on maintenance IV fluids for his hyponatremia and suspected mild dehydration in the setting of fevers. The patient has no history of prosthetic joint or other apparatus. 2. DVT prophylaxis with heparin subcu. 3. Code status is full code. TIME SPENT: Approximately 60 minutes was spent on admission of this patient; more than half time spent with the patient at the bedside reviewing the events leading up to this hospitalization, performing the physical examination and reviewing my plan of care. ADA WILKINS NP [id number]/[facility] #: [id number] JAZMIN
[2017-08-07 18:30] LABS: Urine Appearance Cloudy; Urine Blood 2+ (Negative); Urine Color Amber; Urine Ketones Negative (Negative); Urine Protein 1+(30 mg/dL) (Negative); Urine Specific Gravity 1.011 (1.010-1.030); Urine Urobilinogen Positive (Negative)
[2017-08-07] MEDS: Vancomycin(*) 1,000 MG in NS 0.9% 250 ML* 250 ML IVPB SCH (20:14)
[2017-08-08] MEDS: Acetaminophen TAB* 325 MG PO PRN ×3 (02:17→16:54)
[2017-08-08] MEDS: Vancomycin(*) 1,000 MG in NS 0.9% 250 ML* 250 ML IVPB SCH ×3 (04:01→17:49)
[2017-08-08] MEDS: Heparin VIAL(*) 5000 UNITS/ML VIAL (FIVE THOUSAND) SUBCUT SCH ×3 (04:07→21:59)
[2017-08-08 06:20] LABS: ABS Basophils 0 10^3/ul (0-0.2); ABS Eosinophils 0 10^3/ul (0-0.6); ABS Monocytes 0.6 10^3/ul (0-0.8); ABS Neutrophils 5.1 10^3/ul (1.5-7.7); ABS Nucleated RBC 0 10^3/ul; Eosinophil % 0.3 % (0-6); Hematocrit 38 % (42-52); Hemoglobin 13.1 g/dl (14.0-18.0); Lymphocyte % 14.4 % (25-47); Mean Corpuscular HGB Conc 35 g/dl (31-36); Mean Corpuscular Hemoglobin 29 pg (27-31); Mean Corpuscular Volume 83 fL (80-94); Mean Platelet Volume 7.5 um3 (7.4-10.4); Nucleated Red Blood Cells % 0.1; Platelet Count 192 10^3/ul (150-450); Red Blood Count 4.61 10^6/ul (4.0-5.4); Red Cell Distribution Width 13 % (10.5-15); White Blood Count 6.7 10^3/ul (3.5-10.8)
[2017-08-08] MEDS: Lactobacillus Acidophilu (GG)* 1 CAP CAP PO SCH (09:09)
--- NOTE | 2017-08-08 10:08 | PN ---
Subjective Date of Service: 08/08/17 Interval History: . Interviewed and examined patient at bedside; Discussed case with DENA Wilkins; Reviewed previous notes and radiology results; No new symptoms reported Family History: Unchanged from Admission Social History: Unchanged from Admission Past Medical History: Unchanged from Admission Objective Active Medications: . Acetaminophen (Tylenol Tab*) 650 mg PO Q6H PRN PRN Reason: pain/fever Last Admin: 08/08/17 09:09 Dose: 650 mg Heparin Sodium (Porcine) (Heparin Vial(*)) 5,000 units SUBCUT Q8HR [facility] Last Admin: 08/08/17 04:07 Dose: Not Given Vancomycin HCl 1,000 mg/ (Sodium Chloride) 250 mls @ 166.667 mls/hr IVPB Q8H [facility] Last Admin: 08/08/17 04:01 Dose: 166.667 mls/hr Ibuprofen (Motrin Tab*) 600 mg PO Q8H PRN PRN Reason: PAIN Lactobacillus Rhamnosus (Culturelle*) 1 cap PO DAILY [facility] Last Admin: 08/08/17 09:09 Dose: 1 cap Ondansetron HCl (Zofran Inj*) 4 mg IV Q6H PRN PRN Reason: NAUSEA Pharmacy Consult (Vancomycin Per Pharmacy*) 1 note FOLLOW UP .VANC PER PHARMACY [facility] Pharmacy Profile Note (Vancomycin Trough Check) 1 note FOLLOW UP 1200 ONE Stop: 08/08/17 12:01 . Vital Signs - 8 hr 08/08/17 08/08/17 03:36 07:32 Temperature 100.8 F 100.8 F Pulse Rate 95 86 Respiratory 16 22 Rate Blood Pressure 130/78 150/77 (mmHg) O2 Sat by Pulse 94 96 Oximetry Oxygen Devices in Use Now: None Appearance: NAD Eyes: No Scleral Icterus Ears/Nose/Mouth/Throat: Clear Oropharnyx Neck: Trachea Midline, - - abscess, s/p I&D - dressed Respiratory: Symmetrical Chest Expansion and Respiratory Effort Cardiovascular: NL Sounds; No Murmurs; No JVD Abdominal: NL Sounds; No Tenderness; No Distention Lymphatic: No Cervical Adenopathy Extremities: No Edema Skin: No Rash or Ulcers Neurological: Alert and Oriented x 3 Lines/Tubes/Other Access: Clean, Dry and Intact Peripheral IV Nutrition: Taking PO's Result Diagrams: 08/08/17 05:51 08/08/17 05:51 Assess/Plan/Problems-Billing .Assessment: 41 yo man with no sig pmh now with MRSA abscess on L aspect of neck --> IV antibiotics ongoing NIGEL pending 08/09/17 . - Patient Problems (1) Abscess of neck Current Visit: Yes Status: Acute Priority: High Code(s): L02.11 - CUTANEOUS ABSCESS OF NECK Comment: - s/p I&D - On vancomycin - NIGEL pending; NO p mn. (2) MRSA (methicillin resistant staph aureus) culture positive Current Visit: Yes Status: Acute Priority: High Code(s): Z22.322 - CARRIER OR SUSPECTED CARRIER OF METHICILLIN RESIS STAPH Comment: - NIGEL pending .
[2017-08-08] MEDS ORDERED: Vancomycin Trough Check NOTE FOLLOW UP ONE (12:00)
[2017-08-08] MEDS ORDERED: Potassium Chlor TAB* 10 MEQ TAB.ER PO ONE (17:54)
[2017-08-08] MEDS ORDERED: NS 0.9% 1000 ML* 1,000 ML IV ONE (18:51)
[2017-08-09] MEDS: Vancomycin(*) 1,000 MG in NS 0.9% 250 ML* 250 ML IVPB SCH ×5 (00:21→23:58)
[2017-08-09] MEDS: Heparin VIAL(*) 5000 UNITS/ML VIAL (FIVE THOUSAND) SUBCUT SCH ×3 (06:30→21:54)
[2017-08-09 06:41] LABS: ABS Basophils 0 10^3/ul (0-0.2); ABS Eosinophils 0 10^3/ul (0-0.6); ABS Monocytes 1.2 10^3/ul (0-0.8); ABS Neutrophils 5.9 10^3/ul (1.5-7.7); ABS Nucleated RBC 0 10^3/ul; Eosinophil % 0.1 % (0-6); Hematocrit 37 % (42-52); Hemoglobin 12.8 g/dl (14.0-18.0); Lymphocyte % 22.1 % (25-47); Mean Corpuscular HGB Conc 35 g/dl (31-36); Mean Corpuscular Hemoglobin 29 pg (27-31); Mean Corpuscular Volume 83 fL (80-94); Mean Platelet Volume 7.2 um3 (7.4-10.4); Nucleated Red Blood Cells % 0; Platelet Count 226 10^3/ul (150-450); Red Blood Count 4.46 10^6/ul (4.0-5.4); Red Cell Distribution Width 14 % (10.5-15); White Blood Count 9.2 10^3/ul (3.5-10.8)
[2017-08-09] MEDS: NS 0.9% 1000 ML* 1,000 ML IV SCH (10:10)
[2017-08-09] MEDS ORDERED: Vancomycin Trough Check NOTE FOLLOW UP ONE (11:30)
[2017-08-09 11:52] LABS: Vancomycin Trough 15.3 mcg/mL
[2017-08-09 11:53] LABS: EGFR Non-African American 122.3 (>60)
--- NOTE | 2017-08-09 12:01 | CONS ---
CONSULTATION REPORT: DATE OF CONSULT: 08/09/17 REQUESTING PHYSICIAN: Dr. Lawson. CONSULTING SERVICE: Infectious Disease. REASON FOR CONSULT: MRSA bacteremia. IMPRESSION: 1. Methicillin-resistant staphylococcus aureus bacteremia documented since the and still positive as of the . He has a left facial abscess/ingrown hair, which has had bedside debridement twice in the last week. It is also growing methicillin-resistant staphylococcus aureus. 2. Because of persistent methicillin-resistant staphylococcus aureus bacteremia , differential diagnosis includes intravascular infection including infective endocarditis. He has no spine pain or joint pain to suggest other site of musculoskeletal infection. He has no prosthetic material present. 3. AMOXICILLIN allergy caused rash. RECOMMENDATION: Recheck blood cultures today. Agree with a transesophageal echocardiogram that is pending. Once the blood cultures are negative, he will need a PICC line and 2 weeks of IV antibiotics assuming the echocardiogram is negative. HISTORY OF PRESENT ILLNESS: This is a 41-year-old man who was recently traveling in [facility], developed a left face abscess about a week and a half ago , thinks it may have been an ingrown hair initially, may have nicked it while shaving, had an incision and debridement done as an outpatient in [facility], was given ciprofloxacin which he had taken since he last flew back to [place], end of last week. We will see in the ER with fever, sweats, malaise, diffuse myalgia, reaccumulation of the facial abscess. It was drained in the ER. Blood cultures were obtained. He was sent home on clindamycin. The blood cultures came back positive for MRSA in 4/4 bottles. He was asked to come back into the hospital on the , started on vancomycin, admitted to the hospital. Chest x-ray showed no acute process. He has not had a fever since yesterday morning. Blood cultures taken yesterday are still positive, 4/4 bottles. He has no prosthetic material present. He has no focal pain including the spine or joints. He does still have diffuse myalgia. He has no cough or shortness of breath. PAST MEDICAL HISTORY: None. ALLERGIES: AMOXICILLIN caused a rash. FAMILY HISTORY: Father is alive with diabetes. Mother from gallbladder cancer. SOCIAL HISTORY: Denies tobacco or injection drugs. Occasional alcohol use. 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 No sick contacts. REVIEW OF SYSTEMS: A 14-point review of systems was all negative except as noted above. PHYSICAL EXAM: Vital Signs: Temperature is 37.7, heart rate 80, respiratory rate 16, blood pressure 130/83, oxygen saturation 96% on room air. In general, he is awake, not in distress. Neurologic: He is oriented x3. Follows all commands. Moves all extremities. HEENT: There is no conjunctival hemorrhage. Oropharynx without lesions. Neck is supple without mass. Lymph Nodes: There is no cervical, supraclavicular, inguinal, axillary, or epitrochlear lymphadenopathy. Heart is regular rate and rhythm without murmurs, rubs, or gallops. Lungs are clear to auscultation bilaterally. Abdomen: Soft, nontender, nondistended. There are bowel sounds present. Skin: There is no rash or splinter hemorrhages. Musculo-skeletal: There is no spine tenderness to palpation or joint synovitis. At the angle of the mandible on the left, there is a 1 cm area of induration and erythema without fluctuance. There is no expressible fluid. LABORATORY DATA: White blood cell count 9, hemoglobin 12, platelets 226,000. Creatinine 0.7. CRP was 320 on admission. Please see impressions and recommendations outlined above, which I have discussed with Dr. Lawson. Thank you for asking me to see Mr. Victor in consultation. [id number]/[facility] #: [id number] JAZMIN
[2017-08-09] MEDS ORDERED: Lidocaine 2% VISCOUS* 15 ML UDC ONE (14:04)
[2017-08-09] MEDS ORDERED: Midazolam* 1 MG/ML 10 ML VIAL (10 MG) ONE (14:04)
[2017-08-09] MEDS ORDERED: fentaNYL* 50 MCG/ML 2 ML VIAL (100 MCG VIAL) ONE (14:04)
[2017-08-09] MEDS ORDERED: diPHENhydraMINE IV* 50 MG/ML 1 ml VIAL (BENADRYL) ONE (14:38)
[2017-08-09] MEDS: Lactobacillus Acidophilu (GG)* 1 CAP CAP PO SCH (16:02)
--- NOTE | 2017-08-09 16:09 | TEE ---
Patient: MONIKA GRANADOS [facility] Rec#: [id number] : 1975 Date: 08/09/2017 Age: 41y Height: 170 cm / 66.9 in Weight: 82 kg / 180.7 lbs Sex: M BSA: 1.9 Room#: 408 Admit Date#: 08/07/2017 Type: Inpatient Referring: Ada Wilkins NP Performing: Robel Mcmahan DO Reading: Robel Mcmahan DO Glass Tinter: Radha Tolliver RN RDCS Nurse: Tej Mack RN CC: Matt Johansen MD Transesophageal Echocardiogram Indication: MRSA bacteremia BP: 133/76 HR: 87 Rhythm: NSR with PACs Findings History: Fever, neck abscess, previously healthy Technical Comments: The study quality is good. Left Ventricle: The left ventricular chamber size is normal. Global left ventricular wall motion and contractility are within normal limits. There is normal left ventricular systolic function. The estimated ejection fraction is 55-60%. Left Atrium: The left atrial chamber size is normal. There is no thrombus visualized in the left atrial appendage. Right Ventricle: The right ventricular chamber size and systolic function are within normal limits. Right Atrium: The right atrial cavity size is normal. The bubble study is negative. A patent foramen ovale is not demonstrated with color Doppler and agitated contrast. Aortic Valve: The aortic valve is trileaflet. There is no evidence of aortic regurgitation. There is no evidence of aortic stenosis. There is no aortic vegetation present. Mitral Valve: The mitral valve leaflets appear normal. There is trace to mild mitral regurgitation. There is no evidence of mitral stenosis. No vegetation is observed on the mitral valve. Tricuspid Valve: The tricuspid valve leaflets are normal. A prominent papillary muscle is seen. There is trace tricuspid regurgitation. There is no tricuspid stenosis. No vegetation is observed on the tricuspid valve. Pulmonic Valve: The pulmonic valve appears normal. There is no evidence of pulmonic regurgitation. There is no pulmonic stenosis. No vegetation is observed on the pulmonic valve. Pericardium: There is no significant pericardial effusion. Aorta: There is no dilatation of the ascending aorta. There is mild dilatation of the aortic root. Pulmonary Artery: The main pulmonary artery is not well visualized. Venous: The bicaval view was obtained and appears normal. The pulmonary veins appear normal.2 of 4 pulmonary veins are well visualized and interrogated with Doppler. NIGEL Procedures: All standard views were attempted within the limitations of patient tolerance and safety. History and physical as well as labs were reviewed. The patient was in a fasting state. Risks and benefits of the procedure, including alternatives, were discussed and written informed consent was obtained. The patient and/or their health care retail representative expressed understanding of the procedure, risks and benefits. Baseline and continuous monitoring of blood pressure, heart rate, pulse oximetry and heart rhythm was performed throughout the procedure. The appropriate time-out procedure was performed as per [facility] protocol. The patient was placed in the left lateral decubitus position. The patient's posterior pharynx was anesthetized with 20ml of 2% viscous lidocaine. The patient received IV Midazolam with a total dose of 9 mg. The patient received IV Fentanyl with a total dose of 100 mcg. The patient also received IV Benadryl with a total dose of 50 mg. An oral bite block was inserted for protection of oral dentition. The multiplane transesophageal echocardiogram probe was inserted through the posterior oropharynx and advanced into the esophagus without difficulty. Multiple 2D images were obtained of the heart and its related structures. Color flow Doppler was used for evaluation. Spectral Doppler was also used. The atrial septum was interrogated with color flow Doppler. At the conclusion of the procedure the probe was removed with continuous suction without complications. The patient tolerated the procedure with no apparent complications. Contrast: Normal saline was used as contrast for the bubble study. Image 66. Conclusions There is normal left ventricular systolic function. The estimated ejection fraction is 55-60%. The left atrial chamber size is normal. The right ventricular chamber size and systolic function are within normal limits. There is no significant pericardial effusion. No significant valvular abnormalities noted. No echo evidence of endocarditis. A prominent tricuspid valve papillary muscle is seen. There is mild dilatation of the aortic root. None prior for comparison Measurements Name Value Normal Range Aortic Annulus 2.3 cm (1.4 - 2.6) Ao root diameter (2D) 3.7 cm (2.1 - 3.5) Ascending Ao 3.4 cm (2.1 - 3.4)
--- NOTE | 2017-08-09 19:35 | PN ---
Subjective Date of Service: 08/09/17 Interval History: . s/p NIGEL --> no vegetation seen Continuing IV antibiotics fr several days given recent + BCX. Recheck BCX tomorrow. Family History: Unchanged from Admission Social History: Unchanged from Admission Past Medical History: Unchanged from Admission Objective Active Medications: . Acetaminophen (Tylenol Tab*) 650 mg PO Q6H PRN PRN Reason: pain/fever Last Admin: 08/08/17 16:54 Dose: 650 mg Heparin Sodium (Porcine) (Heparin Vial(*)) 5,000 units SUBCUT Q8HR [facility] Last Admin: 08/09/17 15:00 Dose: Not Given Vancomycin HCl 1,000 mg/ (Sodium Chloride) 250 mls @ 166.667 mls/hr IVPB Q6H [facility] Last Admin: 08/09/17 17:18 Dose: 166.667 mls/hr Sodium Chloride (Ns 0.9% 1000 Ml*) 1,000 mls @ 75 mls/hr IV PER RATE [facility] Last Admin: 08/09/17 10:10 Dose: 75 mls/hr Ibuprofen (Motrin Tab*) 600 mg PO Q8H PRN PRN Reason: PAIN Lactobacillus Rhamnosus (Culturelle*) 1 cap PO DAILY [facility] Last Admin: 08/09/17 16:02 Dose: 1 cap Ondansetron HCl (Zofran Inj*) 4 mg IV Q6H PRN PRN Reason: NAUSEA Pharmacy Consult (Vancomycin Per Pharmacy*) 1 note FOLLOW UP .VANC PER PHARMACY [facility] . Vital Signs - 8 hr 08/09/17 08/09/17 08/09/17 11:39 15:40 15:45 Temperature 98.7 F 99.1 F 99.1 F Pulse Rate 78 82 82 Respiratory 18 18 18 Rate Blood Pressure 147/86 143/93 143/93 (mmHg) O2 Sat by Pulse 95 94 94 Oximetry Oxygen Devices in Use Now: None Appearance: NAD Eyes: No Scleral Icterus Ears/Nose/Mouth/Throat: NL Teeth, Lips, Gums, - - small lesion on left submandibular area - dry, no fluctuance at this time. Respiratory: Symmetrical Chest Expansion and Respiratory Effort Cardiovascular: NL Sounds; No Murmurs; No JVD Abdominal: NL Sounds; No Tenderness; No Distention Lymphatic: No Cervical Adenopathy Extremities: No Edema Skin: No Rash or Ulcers Neurological: Alert and Oriented x 3 Lines/Tubes/Other Access: Clean, Dry and Intact Peripheral IV Nutrition: Taking PO's Result Diagrams: 08/09/17 06:22 08/09/17 11:01 Microbiology and Other Data: Microbiology 08/08/17 11:20 Aerobic Blood Culture - Preliminary Blood Venous MRSA Anaerobic Blood Culture - Preliminary MRSA Blood MRSA/MSSA (PCR) - Final Mrsa Positive S.aureus Positive 08/08/17 05:51 Aerobic Blood Culture - Preliminary Blood Venous MRSA Anaerobic Blood Culture - Preliminary MRSA Blood MRSA/MSSA (PCR) - Final Mrsa Positive S.aureus Positive 08/07/17 17:45 Urine Culture - Final Urine No Growth (<1,000 CFU/mL) Assess/Plan/Problems-Billing .Assessment: 41 yo man with no sig pmh now with MRSA abscess on L aspect of neck --> IV antibiotics ongoing NIGEL 08/09/17 showed no vegetation on valves . - Patient Problems (1) Abscess of neck Current Visit: Yes Status: Acute Priority: High Code(s): L02.11 - CUTANEOUS ABSCESS OF NECK Comment: - s/p I&D - On vancomycin; appreciate ID consultation. - NIGEL neg (2) MRSA (methicillin resistant staph aureus) culture positive Current Visit: Yes Status: Acute Priority: High Code(s): Z22.322 - CARRIER OR SUSPECTED CARRIER OF METHICILLIN RESIS STAPH Comment: - NIGEL neg on (no evidence for endocarditis)
[2017-08-09] MEDS ORDERED: Potassium Chlor TAB* 20 MEQ TAB.ER PO ONE (19:36)
[2017-08-10] MEDS: NS 0.9% 1000 ML* 1,000 ML IV SCH (04:53)
[2017-08-10] MEDS: Vancomycin(*) 1,000 MG in NS 0.9% 250 ML* 250 ML IVPB SCH ×5 (05:46→21:59)
[2017-08-10] MEDS: Heparin VIAL(*) 5000 UNITS/ML VIAL (FIVE THOUSAND) SUBCUT SCH ×3 (05:46→21:59)
[2017-08-10 06:42] LABS: Hematocrit 37 % (42-52); Hemoglobin 12.6 g/dl (14.0-18.0); Mean Corpuscular HGB Conc 34 g/dl (31-36); Mean Corpuscular Hemoglobin 29 pg (27-31); Mean Corpuscular Volume 83 fL (80-94); Mean Platelet Volume 7.1 um3 (7.4-10.4); Platelet Count 245 10^3/ul (150-450); Red Blood Count 4.43 10^6/ul (4.0-5.4); Red Cell Distribution Width 14 % (10.5-15); White Blood Count 11.5 10^3/ul (3.5-10.8)
[2017-08-10 06:45] LABS: ABS Basophils 0.1 10^3/ul (0-0.2); ABS Eosinophils 0.1 10^3/ul (0-0.6); ABS Lymphocytes 2.8 10^3/ul (1.0-4.8); ABS Monocytes 1.9 10^3/ul (0-0.8); ABS Neutrophils 6.6 10^3/ul (1.5-7.7); ABS Nucleated RBC 0 10^3/ul; Eosinophil % 0.8 % (0-6); Lymphocyte % 24.2 % (25-47); Nucleated Red Blood Cells % 0
[2017-08-10] MEDS: Acetaminophen TAB* 325 MG PO PRN (09:23)
[2017-08-10] MEDS: Lactobacillus Acidophilu (GG)* 1 CAP CAP PO SCH (09:23)
--- NOTE | 2017-08-10 10:24 | RAD ---
INDICATION: Abnormal liver function studies. Bacteremia. Request for duplex interrogation of the inferior vena cava, portal, hepatic veins. COMPARISON: None TECHNIQUE: Duplex interrogation of the hepatic and portal venous system was performed. There are Limited grayscale images as well. FINDINGS: The IVC is patent with a normal waveform. The portal vein and portal venous branches appear patent. The main portal vein measures 1.1 cm and demonstrates normal hepatopedal flow with velocity of approximately 30 cm/s. The hepatic veins are patent with normal hepatofugal flow. Limited grayscale imaging shows a mild enlarged (19.2 cm) liver with a nonshadowing echogenic focus in the anterior right hepatic lobe measuring 0.6 mm. This likely a hemangioma. Limited views the pancreas and right kidney unremarkable. The gallbladder appears normal. There is no dilatation of the common duct which is measured 0.3 cm. Limited imaging of the hepatic artery shows patency with a focal area of increased velocity of 305 cm/s. The significance is uncertain. There is a right-sided effusion. IMPRESSION: 1. The hepatic and portal veins are patent with normal direction of flow. 2. Mild hepatomegaly with suspected hemangioma. 3. Normal gallbladder. 4. Elevated hepatic arterial velocities of unknown significance. 5. Right-sided effusion.
[2017-08-10] MEDS ORDERED: Iohexol 300* (CONTRAST) 10 ML SDV IV ONE (14:39)
--- NOTE | 2017-08-10 14:55 | PN ---
Progress Note - Progress Note Date of Service: 08/10/17 SOAP: Subjective: CC: bacteremia HPI: 41 year old man with fever and malaise after I&D left face abscess in [place]; found to have MRSA in blood and in the abscess when repeat I&D in ER here. Today more energy, fever less intense. Mild RUQ pain with deep breath, no rash, or diarrhea. Objective: Vital Signs Temp 37.0 C 08/10/17 12:29 Pulse 72 08/10/17 12:07 Resp 21 08/10/17 12:07 BP 141/83 08/10/17 12:07 Pulse Ox 94 08/10/17 12:07 Intake & Output 08/09/17 08/10/17 08/10/17 18:59 06:59 18:59 Intake Total 970 2292 0 Balance 970 2292 0 Weight 190 lb Intake: IV Fluids 400 602 NS (0.9%) 400 602 IVPB 570 250 ABX - VANCOMYCIN 570 250 Oral 0 1440 0 Other: Estimated Void Large # Bowel Movements 0 0 # Voids 1 Gen:awake, no distress HEENT:no thrush: inferior to left mandible is 1 cm erythema with induration and small eschar Neck:supple Heart:RRR no murmur Lungs:CTA BL Abd:+BS soft, RUQ tenderness w deep breath Skin: no rash MSK: No spine tenderness or joint synovitis Laboratory Results - last 24 hr 08/10/17 08/10/17 06:30 06:30 WBC 11.5 H RBC 4.43 Hgb 12.6 L Hct 37 L MCV 83 MCH 29 MCHC 34 RDW 14 Plt Count 245 MPV 7.1 L Neut % (Auto) 57.6 Lymph % (Auto) 24.2 L [place] % (Auto) 16.9 H Eos % (Auto) 0.8 Baso % (Auto) 0.5 Absolute Neuts (auto) 6.6 Absolute Lymphs (auto) 2.8 Absolute Monos (auto) 1.9 H Absolute Eos (auto) 0.1 Absolute Basos (auto) 0.1 Absolute Nucleated RBC 0 Nucleated RBC % 0 Sodium 132 L Potassium 3.3 L Chloride 100 L Carbon Dioxide 25 Anion Gap 7 BUN 7 Creatinine 0.76 Est GFR ( Amer) 145.4 Est GFR (Non-Af Amer) 113.0 BUN/Creatinine Ratio 9.2 Glucose 117 H Calcium 8.1 L Magnesium 1.9 Total Bilirubin 3.20 H AST 137 H ALT 170 H Alkaline Phosphatase 135 H Total Protein 5.7 L Albumin 2.7 L Globulin 3.0 Albumin/Globulin Ratio 0.9 L Microbiology 08/09/17 11:01 Aerobic Blood Culture - Preliminary Blood Venous Anaerobic Blood Culture - Preliminary No Growth Day 1 08/08/17 11:20 Aerobic Blood Culture - Final Blood Venous MRSA Anaerobic Blood Culture - Final MRSA Blood MRSA/MSSA (PCR) - Final Mrsa Positive S.aureus Positive 08/08/17 05:51 Aerobic Blood Culture - Final Blood Venous MRSA Anaerobic Blood Culture - Final MRSA Blood MRSA/MSSA (PCR) - Final Mrsa Positive S.aureus Positive Assessment: 1. MRSA bacteremia, persists; NIGEL no vegetation. Diff dx includes liver abscess ; no spine or joint symptoms. No prosthetic material present. 2. transaminitis ?liver abscess vs medication related 3. amox allergy Plan: 1. CT A/P 2. continue vancomycin goal tr 15-20, recheck BC 08/11 (ordered). PICC ok when BC negative. GPC in 1/2 from [address]. Discussed with Dr Lawson
--- NOTE | 2017-08-10 21:18 | RAD ---
CLINICAL HISTORY: MRSA bacteremia COMPARISON: None TECHNIQUE: Contrast enhanced CT examination of the abdomen and pelvis from the lung bases through the initial tuberosities. The patient received 115 mL Omnipaque 300 intravenously prior to imaging.The patient received oral contrast as well prior to imaging. FINDINGS: Unless otherwise specified comparisons below reference the September 17, 2016 CT. VISUALIZED LUNG BASES: There are small bilateral pleural effusions slightly larger on the right and left. These are new since the previous CT examination. ABDOMEN AND PELVIS: The liver, spleen, pancreas and adrenal glands are grossly normal in appearance. The gallbladder is normal. At the upper pole the left kidney there is a 9 mm focal hypoattenuating lesion similar in appearance to the previous CT examination. More inferiorly there is vague hypoattenuation in the anterior lateral portion of the left kidney. Left kidney has a partially extrarenal pelvis similar to the previous CT examination. The oral contrast has progressed as far as the descending colon. The small and large bowel are not distended. The patient's normal appendix is identified in the right lower quadrant measuring 5 mm in diameter (axial image 60 and coronal image 42).. There is no gross retroperitoneal or mesenteric lymphadenopathy. The pelvic viscera is normal in appearance. There is a small focus of free fluid in the pelvis. The abdominal aorta and iliac arteries are normal in course and diameter. Degenerative changes include multilevel loss of intervertebral disc height involving the lower thoracic and lumbar spine.There are no sinister bone lesions. IMPRESSION: 1. Involving the upper pole of the left kidney there is vague cortical hypoattenuation that was not seen on the previous CT examination. Please correlate to signs or symptoms of pyelonephritis. Further characterization of the kidneys could be made with renal ultrasound. 2. Interval appearance of small bibasilar pleural effusions (slightly larger on the right than the left, as well as a small collection or free fluid in the left of midline dependent pelvis.
--- NOTE | 2017-08-10 21:33 | PN ---
Subjective Date of Service: 08/10/17 Interval History: . Patient in NAD; visiting + fevers, but lower than previously. Persistently + Bcx... s/p U/S RUQ as well as CT Abd/pelvis w/ contrast. - neither fully explain the bacteremia. Called patient's friend (a physician) to give clinical update. fluids ongoing as per patient request. Family History: Unchanged from Admission Social History: Unchanged from Admission Past Medical History: Unchanged from Admission Objective Active Medications: . Acetaminophen (Tylenol Tab*) 650 mg PO Q6H PRN PRN Reason: pain/fever Last Admin: 08/10/17 09:23 Dose: 650 mg Heparin Sodium (Porcine) (Heparin Vial(*)) 5,000 units SUBCUT Q8HR [facility] Last Admin: 08/10/17 15:09 Dose: 5,000 units Sodium Chloride (Ns 0.9% 1000 Ml*) 1,000 mls @ 75 mls/hr IV PER RATE [facility] Last Admin: 08/10/17 04:53 Dose: 75 mls/hr Vancomycin HCl 1,000 mg/ (Sodium Chloride) 250 mls @ 166.667 mls/hr IVPB Q6H [facility] Last Admin: 08/10/17 16:44 Dose: 166.667 mls/hr Ibuprofen (Motrin Tab*) 600 mg PO Q8H PRN PRN Reason: PAIN Lactobacillus Rhamnosus (Culturelle*) 1 cap PO DAILY [facility] Last Admin: 08/10/17 09:23 Dose: 1 cap Ondansetron HCl (Zofran Inj*) 4 mg IV Q6H PRN PRN Reason: NAUSEA Pharmacy Consult (Vancomycin Per Pharmacy*) 1 note FOLLOW UP .VANC PER PHARMACY [facility] Pharmacy Profile Note (Vancomycin Trough Check) 1 note FOLLOW UP .ENTER TIME ONE Stop: 08/11/17 10:01 . Vital Signs - 8 hr 08/10/17 16:14 Temperature 98.1 F Pulse Rate 78 Respiratory 20 Rate Blood Pressure 152/100 (mmHg) O2 Sat by Pulse 96 Oximetry Oxygen Devices in Use Now: None Appearance: NAD Eyes: No Scleral Icterus Ears/Nose/Mouth/Throat: NL Teeth, Lips, Gums, - - small, dried lesion in submandibular aspect of left neck. Neck: NL Appearance and Movements; NL JVP Respiratory: Symmetrical Chest Expansion and Respiratory Effort, Clear to Auscultation Cardiovascular: NL Sounds; No Murmurs; No JVD Abdominal: NL Sounds; No Tenderness; No Distention, - - mild RUQ tenderness, but not exquisite Lymphatic: No Cervical Adenopathy Extremities: No Edema Skin: No Rash or Ulcers, - - x left neck - resolving lesion. Neurological: Alert and Oriented x 3 Lines/Tubes/Other Access: Clean, Dry and Intact Peripheral IV Nutrition: Taking PO's Result Diagrams: 08/10/17 06:30 08/10/17 06:30 Microbiology and Other Data: Microbiology 08/08/17 11:20 Aerobic Blood Culture - Preliminary Blood Venous MRSA Anaerobic Blood Culture - Preliminary MRSA Blood MRSA/MSSA (PCR) - Final Mrsa Positive S.aureus Positive 08/08/17 05:51 Aerobic Blood Culture - Preliminary Blood Venous MRSA Anaerobic Blood Culture - Preliminary MRSA Blood MRSA/MSSA (PCR) - Final Mrsa Positive S.aureus Positive 08/07/17 17:45 Urine Culture - Final Urine No Growth (<1,000 CFU/mL) Assess/Plan/Problems-Billing .Assessment: 41 yo man with no sig pmh now with MRSA abscess on L aspect of neck --> IV antibiotics ongoing NIGEL 08/09/17 showed no vegetation on valves RUQ U/S neg for cholecystitis or evidence of cholangiis. no visible fluid collection. CT Abd/pelvis w contrast neg for abscess. . - Patient Problems (1) Abscess of neck Current Visit: Yes Status: Acute Priority: High Code(s): L02.11 - CUTANEOUS ABSCESS OF NECK Comment: - s/p I&D - On vancomycin; appreciate ID consultation. - NIGEL neg (2) MRSA (methicillin resistant staph aureus) culture positive Current Visit: Yes Status: Acute Priority: High Code(s): Z22.322 - CARRIER OR SUSPECTED CARRIER OF METHICILLIN RESIS STAPH Comment: - NIGEL neg on (no evidence for endocarditis) (3) Abnormal LFTs Current Visit: Yes Status: Acute Priority: High Code(s): R94.5 - ABNORMAL RESULTS OF LIVER FUNCTION STUDIES Comment: - ? liver abscess - unremarkable RUQ U/S and ABD/PEL CT w/ contrast.
[2017-08-10] MEDS ORDERED: Potassium Chlor TAB* 10 MEQ TAB.ER PO ONE (21:35)
[2017-08-10] MEDS ORDERED: Potassium Chlor TAB* 20 MEQ TAB.ER PO ONE (21:35)
[2017-08-11] MEDS: Vancomycin(*) 1,000 MG in NS 0.9% 250 ML* 250 ML IVPB SCH ×4 (04:00→22:01)
[2017-08-11] MEDS: Heparin VIAL(*) 5000 UNITS/ML VIAL (FIVE THOUSAND) SUBCUT SCH ×3 (05:49→22:01)
[2017-08-11 06:40] LABS: Hematocrit 36 % (42-52); Hemoglobin 12.4 g/dl (14.0-18.0); Mean Corpuscular HGB Conc 34 g/dl (31-36); Mean Corpuscular Hemoglobin 28 pg (27-31); Mean Corpuscular Volume 83 fL (80-94); Mean Platelet Volume 7.4 um3 (7.4-10.4); Platelet Count 278 10^3/ul (150-450); Red Blood Count 4.39 10^6/ul (4.0-5.4); Red Cell Distribution Width 14 % (10.5-15); White Blood Count 14.9 10^3/ul (3.5-10.8)
[2017-08-11 07:04] LABS: EGFR Non-African American 137.8 (>60)
[2017-08-11 08:32] LABS: ABS Basophils 0 10^3/ul (0-0.2); ABS Eosinophils 0.2 10^3/ul (0-0.6); ABS Lymphocytes 4.1 10^3/ul (1.0-4.8); ABS Monocytes 2.2 10^3/ul (0-0.8); ABS Neutrophils 8.4 10^3/ul (1.5-7.7); ABS Nucleated RBC 0 10^3/ul; Eosinophil % 1.1 % (0-6); Lymphocyte % 27.3 % (25-47); Nucleated Red Blood Cells % 0.1
[2017-08-11] MEDS: Lactobacillus Acidophilu (GG)* 1 CAP CAP PO SCH (08:47)
--- NOTE | 2017-08-11 09:38 | PN ---
Progress Note - Progress Note Date of Service: 08/11/17 SOAP: Subjective: CC: bacteremia HPI: 41 year old man with fever and malaise after I&D left face abscess in [place]; found to have MRSA in blood and in the abscess when repeat I&D in ER here. Mild RUQ pain with deep breath overnight, none today. No fever, rash, or diarrhea. Objective: Vital Signs Temp 37.3 C 08/11/17 08:00 Pulse 80 08/11/17 07:47 Resp 18 08/11/17 08:00 BP 151/93 08/11/17 08:00 Pulse Ox 93 08/11/17 07:47 Intake & Output 08/10/17 08/11/17 08/11/17 18:59 06:59 18:59 Intake Total 845 1025 Balance 845 1025 Weight 190 lb Intake: IV Fluids 225 NS (0.9%) 225 IVPB 265 ABX - VANCOMYCIN 265 Oral 580 800 Other: Estimated Void Medium # Bowel Movements 1 Estimated Stool Amount Small # Voids 1 Gen:awake, no distress HEENT:no thrush: inferior to left mandible is 1 cm erythema with induration and small eschar Neck:supple Heart:RRR no murmur Lungs:CTA BL Abd:+BS soft, no RUQ tenderness, no flank pain to palpation Skin: no rash MSK: No spine tenderness or joint synovitis Assessment: 1. MRSA bacteremia, clearing; NIGEL no vegetation. No liver abscess on CT, possible left kidney involvement which I think is less likely due to lack of symptoms in left flank. 2. transaminitis, stable and asymptomatic 3. amox allergy Plan: 1. continue vancomycin goal tr 15-20, recheck BC 08/11. PICC ok when BC negative at 24 hrs. 14 days of vancomycin from time of negative blood cultures Discussed with Dr Natarajan 35 minutes floor time >50% face to face discussing antibiotic plans
[2017-08-11] MEDS ORDERED: Vancomycin Trough Check NOTE FOLLOW UP ONE (10:00)
--- NOTE | 2017-08-11 14:52 | PN ---
Subjective Date of Service: 08/11/17 Interval History: No chills or sweats. A few loose stools. Overall feels well. Family History: Unchanged from Admission Social History: Unchanged from Admission Past Medical History: Unchanged from Admission Objective Active Medications: Acetaminophen (Tylenol Tab*) 650 mg PO Q6H PRN PRN Reason: pain/fever Last Admin: 08/10/17 09:23 Dose: 650 mg Heparin Sodium (Porcine) (Heparin Vial(*)) 5,000 units SUBCUT Q8HR [facility] Last Admin: 08/11/17 05:49 Dose: 5,000 units Vancomycin HCl 1,000 mg/ (Sodium Chloride) 250 mls @ 166.667 mls/hr IVPB Q6H [facility] Last Admin: 08/11/17 11:35 Dose: 166.667 mls/hr Ibuprofen (Motrin Tab*) 600 mg PO Q8H PRN PRN Reason: PAIN Lactobacillus Rhamnosus (Culturelle*) 1 cap PO DAILY [facility] Last Admin: 08/11/17 08:47 Dose: 1 cap Ondansetron HCl (Zofran Inj*) 4 mg IV Q6H PRN PRN Reason: NAUSEA Pharmacy Consult (Vancomycin Per Pharmacy*) 1 note FOLLOW UP .VANC PER [facility]ACY [facility] Pharmacy Profile Note (Vancomycin Trough Check) 1 note FOLLOW UP .0400 ONE Stop: 08/12/17 04:01 Vital Signs - 8 hr 08/11/17 08/11/17 08/11/17 07:47 08:00 10:39 Temperature 99.1 F 99.1 F Pulse Rate 80 74 Respiratory 18 18 18 Rate Blood Pressure 151/93 151/93 (mmHg) O2 Sat by Pulse 93 93 Oximetry 08/11/17 08/11/17 10:59 14:04 Temperature 98.5 F 99.1 F Pulse Rate 83 77 Respiratory 17 22 Rate Blood Pressure 148/89 138/98 (mmHg) O2 Sat by Pulse 93 Oximetry Oxygen Devices in Use Now: None Appearance: Alert, partly up in bed. In good spirits. Looks comfortable. Eyes: No Scleral Icterus Respiratory: Symmetrical Chest Expansion and Respiratory Effort, Clear to Auscultation, Clear to Percussion Extremities: No Edema, No Clubbing, Cyanosis, - Skin: No Rash or Ulcers, - - 2-3 cm indurated sl raised laura L submandibular/ neck area. Neurological: Alert and Oriented x 3, NL Sensation Result Diagrams: 08/11/17 06:17 08/11/17 06:17 Microbiology and Other Data: Microbiology 08/08/17 11:20 Aerobic Blood Culture - Preliminary Blood Venous MRSA Anaerobic Blood Culture - Preliminary MRSA Blood MRSA/MSSA (PCR) - Final Mrsa Positive S.aureus Positive 08/08/17 05:51 Aerobic Blood Culture - Preliminary Blood Venous MRSA Anaerobic Blood Culture - Preliminary MRSA Blood MRSA/MSSA (PCR) - Final Mrsa Positive S.aureus Positive 08/07/17 17:45 Urine Culture - Final Urine No Growth (<1,000 CFU/mL) Assess/Plan/Problems-Billing .Assessment: 41 yo man with no sig pmh now with MRSA abscess on L aspect of neck --> IV antibiotics ongoing NIGEL 08/09/17 showed no vegetation on valves RUQ U/S neg for cholecystitis or evidence of cholangiis. no visible fluid collection. CT Abd/pelvis w contrast neg for abscess. . - Patient Problems (1) MRSA (methicillin resistant staph aureus) culture positive Current Visit: Yes Status: Acute Priority: High Code(s): Z22.322 - CARRIER OR SUSPECTED CARRIER OF METHICILLIN RESIS STAPH SNOMED Code(s): 363361172 Comment: Continue vancomycin. 2 sets blood C&S drawn 08/11. - NIGEL neg on (no evidence for endocarditis)
[2017-08-12] MEDS ORDERED: Vancomycin Trough Check NOTE FOLLOW UP ONE ×2 (04:00→10:00)
[2017-08-12] MEDS: Vancomycin(*) 1,000 MG in NS 0.9% 250 ML* 250 ML IVPB SCH ×2 (04:24→11:13)
[2017-08-12] MEDS: Heparin VIAL(*) 5000 UNITS/ML VIAL (FIVE THOUSAND) SUBCUT SCH (05:34)
[2017-08-12 08:09] VITALS: BP 166/91
[2017-08-12] MEDS: Lactobacillus Acidophilu (GG)* 1 CAP CAP PO SCH (09:54)
[2017-08-12 10:35] LABS: Vancomycin Trough 12.4 mcg/mL
[2017-08-12] MEDS ORDERED: Potassium Chlor TAB* 20 MEQ TAB.ER PO SCH (11:00)
--- NOTE | 2017-08-12 11:06 | PN ---
Progress Note - Progress Note Date of Service: 08/12/17 Note: Time spent on discharge 50 minutes.
--- NOTE | 2017-08-13 08:07 | DS ---
CC: Dr. Castaneda; Dr. Matt Johansen. * DISCHARGE SUMMARY: DATE OF ADMISSION: 08/07/17 DATE OF DISCHARGE: 08/12/17 HOSPITAL COURSE: This 41-year-old man presented with fever and abscess on the left neck soft tissue area. History is detailed in admission note. The patient was initially treated in [place] with ciprofloxacin. He had lancing of the abscess area with purulent drainage. When he came back to [place] , he had malaise and had fever again. His white count was 18.8, his sodium was 125. His temperature was over 100. The patient had another I and D procedure and was started on clindamycin. Blood cultures were drawn and it was found that he had MRSA in his blood, and he was called back to be admitted to the hospital. The patient was treated with intravenous vancomycin from the time of admission to the time of discharge. Blood cultures were positive for MRSA on 08/06/17, 08/07/17, 08/08/17, 08/09/17 , 08/10/17. Two sets of blood cultures were drawn on 08/11/17; about 26 hours after they were drawn, the results were still negative. The patient's temperature was 100.6 on 08/10/17, 100.3 on 08/11/17. His white blood cell count was 18.8 08/06/17, 11.5 on 08/10/17, and 14.9 on 08/11/17. His C-reactive protein fell from 318 on 08/07/17 to 75 on 08/12/17. The patient felt much better. He had no more chills or sweats by the end of his hospital stay. The soft tissue lesion on his left neck was barely noticeable, about 2 cm, slightly raised, not red or tender. The patient had persistent hyperkalemia, and is being started on potassium therapy on the day of discharge. FINAL DIAGNOSES: 1. Soft tissue infection with methicillin-resistant Staphylococcus aureus bacteremia. 2. Hyperkalemia. DISCHARGE MEDICATIONS: 1. Vancomycin 1 g IV every 6 hours for 14 more days. 2. Potassium chloride 20 mEq daily. [id number]/[facility] #: [id number] [facility]
== END 2017-08-12 13:35 | disposition home or self-care (01) | DRG 603 ==
LOC: ED 10:38 → MED 12:07
PROVIDERS: ADMIT Internal Medicine; ATTEND Internal Medicine
PROC: B24BZZ4 Ultrasonography of Heart with Aorta, Transesophageal (ICD-10-PCS; principal; 2017-08-09 13:45)
PROC: 02HV33Z Insertion of Infusion Device into Superior Vena Cava, Percutaneous Approach (ICD-10-PCS; 2017-08-12)
DX: L02.11 Cutaneous abscess of neck (principal); R78.81 Bacteremia; L02.01 Cutaneous abscess of face; B95.62 Methicillin resistant Staphylococcus aureus infection as the cause of diseases classified elsewhere; E86.0 Dehydration; S11.90XA Unspecified open wound of unspecified part of neck, initial encounter; W45.8XXA Other foreign body or object entering through skin, initial encounter; R74.0 Nonspecific elevation of levels of transaminase and lactic acid dehydrogenase [LDH]; R94.5 Abnormal results of liver function studies; E87.5 Hyperkalemia; Z88.0 Allergy status to penicillin; Z83.3 Family history of diabetes mellitus; Z80.0 Family history of malignant neoplasm of digestive organs; Z72.89 Other problems related to lifestyle; Y92.9 Unspecified place or not applicable
CPT/HCPCS: 36415; 71045; 74177; 80048; 80053; 80202; 81003; 81015; 82248; 82565; 83605; 83735; 84484; 84520; 85025; 85610; 85730; 86140; 86141; 87040; 87077; 87086; 87150; 87186; 87205; 93005; 93312; 93325; 93975; 99156; 99157; 99284; A9270-GY; J1200; J1644; J2250; J3010; J3370; Q9967